=== PATIENT | male | born 1955 | race American Indian/Alaskan Native ===

== ENCOUNTER 2016-05-23 21:36 | Inpatient (IN) | payer MEDICAID ==
[2016-05-24] MEDS ORDERED: NACL 0.9% 1000 ML 1,000 ML IV ONE (02:18)
[2016-05-24] MEDS ORDERED: TYLENOL PR STA (02:18)
[2016-05-24] MEDS ORDERED: TYLENOL PO ONE (02:34)
[2016-05-24 03:14] LABS: INR 1.01 (0.87-1.13)
[2016-05-24 03:19] LABS: Hematocrit 39.4 % (35.5-45.6); Hemoglobin 13.2 gm/dl (11.8-15.2); Mean Corpuscular HGB Conc 34 % (32-34); Mean Corpuscular Hemoglobin 30 pg (28-32); Mean Corpuscular Volume 90 fl (84-94); Platelet Count 213 K/mm3 (140-440); Red Blood Count 4.38 M/mm3 (3.65-5.03); Red Cell Distribution Width 14.7 % (13.2-15.2); White Blood Count 5.2 K/mm3 (4.5-11.0)
[2016-05-24 03:20] LABS: Basophils % (Auto) 0.3 % (0.0-1.8); Eosinophils % (Auto) 1.4 % (0.0-4.3)
[2016-05-24 03:24] LABS: Alanine Aminotransferase 28 units/L (7-56); Albumin 3.4 g/dL (3.9-5); Albumin/Globulin Ratio 0.8 %; Alkaline Phosphatase 61 units/L (35-129); Bilirubin,Total 0.5 mg/dL (0.1-1.2); Blood Urea Nitrogen 14 mg/dL (9-20); Calcium 8.4 mg/dL (8.4-10.2); Carbon Dioxide 26 mmol/L (22-30); Glucose 102 mg/dL (75-100); Potassium 4.2 mmol/L (3.6-5.0); Sodium 138 mmol/L (137-145); Total Protein 7.7 g/dL (6.3-8.2)
[2016-05-24 03:32] LABS: Anion Gap 17 mmol/L
--- NOTE | 2016-05-24 08:31 | XRay Report ---
AP CHEST: AP view of the chest demonstrates a normal mediastinal and cardiac contour with clear lungs and normal bony and soft tissue structures. IMPRESSION: Normal AP chest.
[2016-05-24] MEDS ORDERED: MORPHINE IV ONE (20:18)
[2016-05-24] MEDS ORDERED: CLEOCIN 600 MG/50 mL 50 ML IV ONE (20:18)
[2016-05-24] MEDS ORDERED: ZOFRAN IV ONE (20:18)
[2016-05-24] MEDS ORDERED: NACL 0.9% 1000 ML 1,000 ML ONE (20:18)
[2016-05-24] MEDS ORDERED: ROCEPHIN/NS 1 GM/50 ML 50 ML IV ONE (20:18)
[2016-05-24] MEDS ORDERED: LASIX IV ONE (20:23)
[2016-05-24] MEDS ORDERED: BABY ASPIRIN PO ONE (20:24)
--- NOTE | 2016-05-24 20:24 | Emergency Department Report ---
HPI - General Chief Complaint: Wound/Laceration Time Seen by Provider: 05/24/16 19:46 - HPI HPI: The patient is a 60-year-old male with a history of diabetes, who presents for evaluation of pain and wound to the heel right ankle. The patient states that for greater than the past month he has experienced progressive pain in opening of a wound to the medial aspect of the right ankle. He states that for the past one day he has experienced severe 10 out of 10 pain, sharp and shooting in quality, exacerbated with ambulation, radiating proximally up the anterior wright of the leg. He also reports intermittent drainage of fluid from the wound, and unassociated bilateral lower leg swelling for the past couple of days. He shares that he is homeless and states that he is unable to clean the wound or purchase antibiotics. The patient denies fever, trauma to the ankle, paresthesias, motor deficit, pelvis or cyanosis to the foot or toes distal to the wound, chills, night sweats, generalized weakness, or confusion. ED Past Medical Hx - Past Medical History Previous Medical History?: Yes Hx Hypertension: Yes Hx Diabetes: Yes (BORDERLINE) Hx Deep Vein Thrombosis: Yes Hx Psychiatric Treatment: Yes (DEPRESSION) Hx COPD: Yes - Surgical History Past Surgical History?: Yes Additional Surgical History: LEFT HIP REPLACEMENT. LIPOMAS - Social History Smoking Status: Current Every Day Smoker Substance Use Type: Alcohol - Medications Home Medications: Home Medications Medication Instructions Recorded Confirmed Last Taken Type HYDROcodone/APAP 5-325 [Bellamy 1 - 2 each PO Q6HR PRN #14 tablet 11/01/14 Unknown Rx 5/325] SILVER sulfADIAZINE 400 GRAM 1 applicatio TP DAILY #400 gm 11/01/14 Unknown Rx [Thermazene 400 Gram] ED Review of Systems ROS: Stated complaint: RT LEG PAIN Other details as noted in HPI Constitutional: denies: fever ENT: denies: throat or neck pain Respiratory: denies: cough, shortness of breath Cardiovascular: denies: chest pain Endocrine: denies unexplained weight loss or gain Gastrointestinal: denies: abdominal pain, nausea Genitourinary: denies: dysuria Musculoskeletal: reports right ankle pain and bilateral leg swelling Skin: denies: rash Neurological: denies: headache Hematological/Lymphatic: denies: easy bleeding or easy bruising Psych: denies sadness or hopelessness Physical Exam - Physical Exam Vital Signs: Vital Signs 12/28/16 12/28/16 12/28/16 02:25 02:40 08:05 Temperature 98.6 F 98.6 F Pulse Rate 97 H 84 Respiratory 22 18 16 Rate Blood Pressure 155/104 149/97 O2 Sat by Pulse 99 98 Oximetry Physical Exam: General: well-nourished, well-developed, no acute distress Head: Normocephalic, atraumatic Eyes: normal sclera ENT: Mucous membranes are pale and dry Neck: trachea midline, neck supple, No neck stiffness, no cervical adenopathy Respiratory: Breath sounds equal bilaterally, no wheezing, rales, or rhonchi Cardio: S1 and S2 present, no murmurs, rubs, gallops, capillary refill is delayed Abdomen: Normoactive bowel sounds, soft abdomen, no rigidity, no guarding or rebound tenderness Chest WALL/Back: No tenderness to palpation of the chest wall, no CVA tenderness with percussion Musc: right ankle erythema present to medial malleolus and midfoot, large draining ulcer present overlying the medial malleolus of the rt ankle, tenderness to palpation present to surrounding tissues, distal pulses intact, 1 + pitting edema of bilateral legs present, leg compartments soft and pliable Skin: No rash Neuro: no facial drooping, normal speech Psych: Normal affect ED Course Vital Signs 05/24/16 05/24/16 05/24/16 02:25 02:40 08:05 Temperature 98.6 F 98.6 F Pulse Rate 97 H 84 Respiratory 22 18 16 Rate Blood Pressure 155/104 149/97 O2 Sat by Pulse 99 98 Oximetry ED Medical Decision Making - Lab Data Result diagrams: 05/24/16 02:41 05/24/16 02:41 - Medical Decision Making The patient was seen and examined by myself. The patient is placed on a fishing rod trimmer and continuous pulse ox. On initial evaluation, the patient was found to be in no distress. Exam findings are consistent with acute cellulitis. Evaluation orders were placed. The patient is given IV morphine for his pain and IV Lasix for fluid overload. The patient is given IV Rocephin and clindamycin for treatment of his cellulitis. X-ray of the right ankle is obtained and is negative for periosteal elevation of findings concerning at this time for osteomyelitis. Wound cultures were obtained. The on-call hospitalist service was contacted. They agreed to admit the patient for further treatment and close monitoring. The ED admit order was placed. The patient was admitted in guarded condition. Critical care attestation.: If time is entered above; I have spent that time in minutes in the direct care of this critically ill patient, excluding procedure time. ED Disposition Clinical Impression: Ankle ulcer due to DM, Dehydration Cellulitis Qualifiers: Site of cellulitis: extremity Site of cellulitis of extremity: lower extremity Laterality: right Qualified Code(s): L03.115 - Cellulitis of right lower limb Disposition: OP ADMITTED IP TO THIS HOSP Is pt being admited?: Yes Does the pt Need Aspirin: Yes Condition: Stable Instructions: Diabetes Mellitus Type 2 in Adults (ED) Referrals: PRIMARY CARE, [Primary Care Provider] - 3-5 Days Time of Disposition: 20:22
--- NOTE | 2016-05-24 20:54 | Admit Criteria Form ---
Admission Criteria Documentation: CELLULITIS Clinical Indications for Admission to Inpatient Care (Place 'X' for any and all applicable criteria): Admission is indicated for ANY ONE of the following(1)(2)(3)(4)(5): [ ]I. Limb-threatening infection [ ]II. High-risk comorbid condition as indicated by ANY ONE of the following: [ ]a) Uncontrolled diabetes (eg, HbA1c greater than 10% (0.1)) [ ]b) Cirrhosis [ ]c) Neutropenia [ ]d) Asplenia [ ]e) Immunosuppression [ ]f) Symptomatic heart failure [ ]III. Failure of outpatient therapy as indicated by ALL of the following: [ ]a) Progression or no improvement after adequate trial (minimum of 48 hours, with longer period for stable lower extremity infection) [ ]b) Adequate antibiotic regimen as indicated by use of ANY ONE of the following: [ ]i) First-generation cephalosporin (e.g., cephalexin) [ ]ii) Antistaphylococcal penicillin (e.g., dicloxacillin) [ ]iii) Penicillin-allergic patient regimen (clindamycin, extended-spectrum fluoroquinolone, or doxycycline) [ ]iv) Resistant organism (eg, methicillin-resistant Staphylococcus aureus) regimen (6) [ ]c) Outpatient intravenous therapy regimen is not appropriate due to ANY ONE of the following. (7)(8)(9)(10): [ ]i) It was tried and was not successful (eg, progression of infection). [ ]ii) It is not available or cannot be arranged in a clinically appropriate time frame (e.g., the next day). [ ]iii) Clinical presentation (eg, acuity of infection, rapidity of progression, confirmed or suspected bacteremia) is judged to require ALL of the following: [ ]1) Immediate initiation of intravenous therapy ( eg, cannot wait for next day) [ ]2) Intensity of patient monitoring and observation (eg, vital sign measurement, checks for infection progression) that cannot be provided at other than inpatient level of care [ ]IV. Mental status changes [ ]V. Bacteremia [ ]. Hemodynamic instability [ ]VII. Suspected necrotizing soft tissue infection (e.g., gas in tissue)(11)( 12) [ ]VIII. Orbital infection (13)(14) [ ]IX. Associated surgical procedure (e.g., abscess drainage, debridement) not amenable to outpatient, emergency department, or observation care [ ]X. Cutaneous gangrene [ ]XI. High fever (temperature greater than 39.5 degrees C (103.1 degrees F) (oral)) not responsive to outpatient, emergency department, or observation care therapy [ X]XIII. Inpatient admission required rather than observation care (Also use Cellulitis: Observation Care as appropriate) because of ANY ONE of the following : [ ]a) Periorbital or perineal infection that is severe or worsening [ ]b) Severe pain requiring acute inpatient management [ ]c) IV fluid to replace significant ongoing (e.g., for over 24 hours) losses (greater than 3L/m2 per day) [ ]d) Compartment syndrome monitoring (17) [ ]e) Strict or protective (eg, laminar flow) isolation [ ]f) Urgent debridement or skin grafting [ ]g) Bone or joint debridement [ ]h) Immediate inpatient surgery [X ]i) Other condition, treatment or monitoring requiring inpatient admission Extended stay beyond goal length of stay may be needed for (1)(18): [ ]a) Necrotizing soft tissue infection or fasciitis [ ]b) Gram-negative infection [ ]c) Methicillin-resistant Staphylococcal aureus (MRSA) infection [ ]d) Peripheral venous insufficiency with cellulitis [ ]e) Extensive edema [ ]f) Sepsis or continued Hemodynamic instability [ ]g) Continued high fever or mental status change [ ]h) Bacteremia [ ]i) Active serious comorbid conditions ( eg, heart failure, renal insufficiency) The original [employer] content created by [employer] has been revised. The portions of the content which have been revised are identified through the use of italic text or in bold, and [facility] has neither reviewed nor approved the modified material. All other unmodified content is copyright [facility] [employer] Please see references footnoted in the original [facility] [employer] edition 2016 Admission Criteria Met: Yes
[2016-05-24 21:12] LABS: C-Reactive Protein 0.4 mg/dL (0.00-1.30)
[2016-05-24 21:44] LABS: Bilirubin,Urine NEG (Negative); Blood,Urine SM (Negative); Ketones,Urine NEG (Negative); Leukocyte Esterase,Urine NEG (Negative); Nitrite,Urine NEG (Negative); Protein,Urine <15 mg/dL mg/dL (Negative); Urobilinogen,Urine < 2.0 mg/dL (<2.0); WBC,Urine < 1.0 /HPF (0.0-6.0)
--- NOTE | 2016-05-24 22:41 | History and Physical Report ---
History of Present Illness Chief complaint: My foot is infected History of present illness: 60 YO Homeless Male with HTN, Depression, Metabolic Syndrome, Nicotine Dependence, DVT presents to ED for evaluation. Pt states that he has experienced worsening pain and swelling of his right ankle over the past month. Pt acknowledges non healing right ankle ulcer. pt symptoms have gotten worse over the past 24 hours. Pt now complains of worsening swelling, Pain 10/10, localized to right foot. Pt is unable to bear weight on his right foot due to pain. The patient denies fever, trauma to the ankle, prolonged immobility/ travel, family history of PE/DVT, paresthesias, fever, chills, night sweats, generalized weakness, or confusion. Past History Past Medical History: hypertension Past Surgical History: total hip replacement Social history: single, smoking, alcohol abuse Family history: diabetes, hypertension Medications and Allergies Allergies Allergy/AdvReac Type Severity Reaction Status Date / Time povidone-iodine Allergy Swelling Verified 10/31/14 14:29 [From Betadine] soap [From Betadine] Allergy Swelling Verified 10/31/14 14:29 Home Medications Medication Instructions Recorded Confirmed Last Taken Type HYDROcodone/APAP 5-325 [[place]z 1 - 2 each PO Q6HR PRN #14 tablet 11/01/14 Unknown Rx 5/325] SILVER sulfADIAZINE 400 GRAM 1 applicatio TP DAILY #400 gm 11/01/14 Unknown Rx [Thermazene 400 Gram] Review of Systems All systems: negative Musculoskeletal: other (foot pain) Exam - Constitutional Vitals: Temp Pulse Resp BP Pulse Ox 98.6 F 84 16 151/93 96 05/24/16 08:05 05/24/16 08:05 05/24/16 08:05 05/24/16 20:45 05/24/16 20:45 General appearance: Present: mild distress - EENT Eyes: Present: PERRL ENT: hearing intact, clear oral mucosa - Neck Neck: Present: supple, normal ROM - Respiratory Respiratory effort: normal Respiratory: bilateral: CTA - Cardiovascular Heart Sounds: Present: S1 & S2. Absent: rub, click - Extremities Extremities: pulses symmetrical, No edema Extremity abnormal: edema, ulceration, erythema, pulses diminished Peripheral Pulses: within normal limits - Abdominal General gastrointestinal: Present: soft, non-tender, non-distended, normal bowel sounds Male genitourinary: Present: normal - Integumentary Integumentary: Present: clear, warm, dry - Musculoskeletal Musculoskeletal: gait normal, strength equal bilaterally - Psychiatric Psychiatric: appropriate mood/affect, intact judgment & insight - Neurologic Neurologic: CNII-XII intact, moves all extremities Results - Labs CBC & Chem 7: 05/24/16 02:41 05/24/16 02:41 Labs: Abnormal lab results 05/24/16 05/24/16 Range/Units 02:41 02:41 Lymph % (Auto) 44.8 H (13.4-35.0) % [place] % (Auto) 14.2 H (0.0-7.3) % Seg Neutrophils % 39.3 L (40.0-70.0) % Glucose 102 H (75-100) mg/dL AST 51 H (5-40) units/L Albumin 3.4 L (3.9-5) g/dL Assessment and Plan - Patient Problems (1) Cellulitis Current Visit: Yes Status: Acute Qualifiers: Site of cellulitis: extremity Site of cellulitis of extremity: lower extremity Laterality: right Qualified Code(s): L03.115 - Cellulitis of right lower limb Plan to address problem: IV abx, blood culture, wound culture, Vancomycin, Zosyn, wound care consult Cellulitis with ulceration (2) Metabolic syndrome Current Visit: Yes Status: Acute Plan to address problem: supportive care, (3) Nicotine dependence Current Visit: Yes Status: Acute Plan to address problem: Pt counseled. (4) DVT prophylaxis Current Visit: Yes Status: Acute
[2016-05-24] MEDS ORDERED: TYLENOL PO PRN (23:07)
[2016-05-24] MEDS ORDERED: DUONEB 0.5 MG-3 MG/3 ML SOLN IH PRN (23:07)
[2016-05-24] MEDS ORDERED: PROVENTIL IH PRN (23:17)
[2016-05-24] MEDS ORDERED: ZOSYN/NS 4.5GM/100ML 100 ML IV ONE (23:19)
[2016-05-24] MEDS ORDERED: VANCOMYCIN/NS 1 GM/250 ML 250 ML IV ONE (23:19)
[2016-05-24] MEDS ORDERED: THERAGRAN Tab PO ONE (23:20)
[2016-05-24] MEDS ORDERED: VITAMIN B-1 PO ONE (23:20)
[2016-05-25] MEDS ORDERED: HALDOL IV PRN (00:06)
[2016-05-25] MEDS ORDERED: ATIVAN IV PRN ×2 (00:06)
[2016-05-25] MEDS: PERCOCET 5/325 PO PRN ×4 (00:26→19:52)
--- NOTE | 2016-05-25 09:12 | XRay Report ---
RIGHT ANKLE, 2 VIEWS: HISTORY: Right ankle ulcer, pain, swelling. FINDINGS: Compared to 10/31/14 exam. There is diffuse soft tissue swelling/edema. A large area of ulceration is identified in the medial soft tissues just proximal to the ankle joint. This area of ulceration measures up to 6 cm in diameter. No obvious periostitis or bony destruction is identified. There are moderate osteoarthritic changes at the ankle joint. No fracture. IMPRESSION: Large area of ulceration in the medial soft tissues and diffuse soft tissue swelling. Cellulitis is likely. No obvious findings of osteomyelitis on x-ray. If further evaluation is needed, MRI with contrast or triple phase bone scan would provide the most information.
[2016-05-25] MEDS: FOLVITE PO SCH (09:17)
--- NOTE | 2016-05-25 11:36 | Progress Note ---
Assessment and Plan Assessment and plan: 1. Right lower extremity cellulitis Continue antibiotics, venous duplex negative for DVT, continue antibiotics, follow up blood and wound cultures. 2. Nicotine dependence Patient has been counseled, offered nicotine patches when necessary History Interval history: Interval reduction of redness, swelling and pain in right lower extremity. Denies fever Hospitalist Physical - Physical exam Narrative exam: General: Patient appears well in no distress HEENT: MMM, EOMI cardiac: S1-S2 heard lungs: clear to auscultation, abdomen: soft, nontender, nondistended bowel sounds positive extremities: Right lower extremity edema, erythema and tenderness, medial malleolus ulcer Skin: no rash or lesion Neuro: no focal deficit Psych: appropriate behavior and mood, cognition intact - Constitutional Vitals: Temp Pulse Resp BP Pulse Ox 97.5 F L 60 20 112/73 98 05/25/16 08:10 05/25/16 08:10 05/25/16 08:10 05/25/16 08:10 05/25/16 08:10 General appearance: Present: mild distress Results - Labs CBC & Chem 7: 05/24/16 02:41 05/24/16 02:41 Labs: Laboratory Last Values WBC 5.2 K/mm3 (4.5-11.0) 05/24/16 02:41 RBC 4.38 M/mm3 (3.65-5.03) 05/24/16 02:41 Hgb 13.2 gm/dl (11.8-15.2) 05/24/16 02:41 Hct 39.4 % (35.5-45.6) 05/24/16 02:41 MCV 90 fl (84-94) 05/24/16 02:41 MCH 30 pg (28-32) 05/24/16 02:41 MCHC 34 % (32-34) 05/24/16 02:41 RDW 14.7 % (13.2-15.2) 05/24/16 02:41 Plt Count 213 K/mm3 (140-440) 05/24/16 02:41 Lymph % (Auto) 44.8 % (13.4-35.0) H 05/24/16 02:41 [place] % (Auto) 14.2 % (0.0-7.3) H 05/24/16 02:41 Eos % (Auto) 1.4 % (0.0-4.3) 05/24/16 02:41 Baso % (Auto) 0.3 % (0.0-1.8) 05/24/16 02:41 Lymph # 2.3 K/mm3 (1.2-5.4) 05/24/16 02:41 [place] # 0.7 K/mm3 (0.0-0.8) 05/24/16 02:41 Eos # 0.1 K/mm3 (0.0-0.4) 05/24/16 02:41 Baso # 0.0 K/mm3 (0.0-0.1) 05/24/16 02:41 Seg Neutrophils % 39.3 % (40.0-70.0) L 05/24/16 02:41 Seg Neutrophils # 2.0 K/mm3 (1.8-7.7) 05/24/16 02:41 ESR 40 mm/Hr (0-20) 05/24/16 20:37 PT 13.2 Sec. (12.2-14.9) 05/24/16 02:41 INR 1.01 (0.87-1.13) 05/24/16 02:41 VBG pH 7.398 (7.320-7.420) 05/24/16 02:41 Sodium 138 mmol/L (137-145) 05/24/16 02:41 Potassium 4.2 mmol/L (3.6-5.0) 05/24/16 02:41 Chloride 99.0 mmol/L (98-107) 05/24/16 02:41 Carbon Dioxide 26 mmol/L (22-30) 05/24/16 02:41 Anion Gap 17 mmol/L 05/24/16 02:41 BUN 14 mg/dL (9-20) 05/24/16 02:41 Creatinine 0.8 mg/dL (0.8-1.5) 05/24/16 02:41 Estimated GFR > 60 ml/min 05/24/16 02:41 BUN/Creatinine Ratio 17.50 % 05/24/16 02:41 Glucose 102 mg/dL (75-100) H 05/24/16 02:41 Hemoglobin A1c 6.2 % (4-6) H 05/24/16 23:46 Lactic Acid 0.7 mmol/L (0.7-2.0) 05/24/16 05:12 Calcium 8.4 mg/dL (8.4-10.2) 05/24/16 02:41 Total Bilirubin 0.5 mg/dL (0.1-1.2) 05/24/16 02:41 AST 51 units/L (5-40) H 05/24/16 02:41 ALT 28 units/L (7-56) 05/24/16 02:41 Alkaline Phosphatase 61 units/L (35-129) 05/24/16 02:41 C-Reactive Protein 0.40 mg/dL (0.00-1.30) 05/24/16 20:37 NT-Pro-B Natriuret Pep 96.48 pg/mL (0-900) 05/24/16 20:37 Total Protein 7.7 g/dL (6.3-8.2) 05/24/16 02:41 Albumin 3.4 g/dL (3.9-5) L 05/24/16 02:41 Albumin/Globulin Ratio 0.8 % 05/24/16 02:41 Triglycerides 75 mg/dL (2-149) 05/24/16 23:46 Cholesterol 128 mg/dL (50-199) 05/24/16 23:46 LDL Cholesterol Direct 49 mg/dL (50-130) L 05/24/16 23:46 HDL Cholesterol 64 mg/dL (40-59) H 05/24/16 23:46 Cholesterol/HDL Ratio 2.00 % 05/24/16 23:46 Urine Color Straw (Yellow) 05/24/16 21:00 Urine Turbidity Clear (Clear) 05/24/16 21:00 Urine pH 6.0 (5.0-7.0) 05/24/16 21:00 Ur Specific Oral 1.008 (1.003-1.030) 05/24/16 21:00 Urine Protein <15 mg/dl mg/dL (Negative) 05/24/16 21:00 Urine Glucose (UA) Neg mg/dL (Negative) 05/24/16 21:00 Urine Ketones Neg mg/dL (Negative) 05/24/16 21:00 Urine Blood Sm (Negative) 05/24/16 21:00 Urine Nitrite Neg (Negative) 05/24/16 21:00 Urine Bilirubin Neg (Negative) 05/24/16 21:00 Urine Urobilinogen < 2.0 mg/dL (<2.0) 05/24/16 21:00 Ur Leukocyte Esterase Neg (Negative) 05/24/16 21:00 Urine WBC (Auto) < 1.0 /HPF (0.0-6.0) 05/24/16 21:00 Urine RBC (Auto) 1.0 /HPF (0.0-6.0) 05/24/16 21:00 - Imaging and Cardiology Venous US: image reviewed (no dvt) Imaging and Cardiology: R foot xray soft tx swelling and ulceration cw cellulitis
[2016-05-25] MEDS: UNASYN/NS 3 GM/100 ML 100 ML IV SCH ×2 (15:15→18:17)
[2016-05-26] MEDS: UNASYN/NS 3 GM/100 ML 100 ML IV SCH ×4 (00:40→17:50)
[2016-05-26] MEDS: PERCOCET 5/325 PO PRN ×2 (06:06→15:43)
--- NOTE | 2016-05-26 09:52 | Progress Note ---
Assessment and Plan Assessment and plan: 1. Right lower extremity cellulitis venous duplex negative for DVT, continue abx for now ID input appreciated, had a mild cellulitis that appears to be resolving unlikely to need fpc abx 2. Nicotine dependence Patient has been counseled, offered nicotine patches when necessary 3. Venous stasis Ulcer/ Chronic lymphedema local wound care will need outpatient vascular fup Dispo: fdc placement History Interval history: Interval reduction of redness, swelling and pain in right lower extremity. Denies fever Hospitalist Physical - Physical exam Narrative exam: General: Patient appears well in no distress HEENT: MMM, EOMI cardiac: S1-S2 heard lungs: clear to auscultation, abdomen: soft, nontender, nondistended bowel sounds positive extremities: Right lower extremity edema, erythema and tenderness has now resolved, medial malleoulus ulceration noted, appears clean Skin: no rash or lesion Neuro: no focal deficit Psych: appropriate behavior and mood, cognition intact - Constitutional Vitals: Temp Pulse Resp BP Pulse Ox 98.4 F 78 18 160/87 94 05/26/16 07:10 05/26/16 07:10 05/26/16 07:10 05/26/16 07:10 05/25/16 22:52 General appearance: Present: mild distress Results - Labs CBC & Chem 7: 05/24/16 02:41 05/24/16 02:41 Labs: Laboratory Last Values WBC 5.2 K/mm3 (4.5-11.0) 05/24/16 02:41 RBC 4.38 M/mm3 (3.65-5.03) 05/24/16 02:41 Hgb 13.2 gm/dl (11.8-15.2) 05/24/16 02:41 Hct 39.4 % (35.5-45.6) 05/24/16 02:41 MCV 90 fl (84-94) 05/24/16 02:41 MCH 30 pg (28-32) 05/24/16 02:41 MCHC 34 % (32-34) 05/24/16 02:41 RDW 14.7 % (13.2-15.2) 05/24/16 02:41 Plt Count 213 K/mm3 (140-440) 05/24/16 02:41 Lymph % (Auto) 44.8 % (13.4-35.0) H 05/24/16 02:41 [place] % (Auto) 14.2 % (0.0-7.3) H 05/24/16 02:41 Eos % (Auto) 1.4 % (0.0-4.3) 05/24/16 02:41 Baso % (Auto) 0.3 % (0.0-1.8) 05/24/16 02:41 Lymph # 2.3 K/mm3 (1.2-5.4) 05/24/16 02:41 [place] # 0.7 K/mm3 (0.0-0.8) 05/24/16 02:41 Eos # 0.1 K/mm3 (0.0-0.4) 05/24/16 02:41 Baso # 0.0 K/mm3 (0.0-0.1) 05/24/16 02:41 Seg Neutrophils % 39.3 % (40.0-70.0) L 05/24/16 02:41 Seg Neutrophils # 2.0 K/mm3 (1.8-7.7) 05/24/16 02:41 ESR 40 mm/Hr (0-20) 05/24/16 20:37 PT 13.2 Sec. (12.2-14.9) 05/24/16 02:41 INR 1.01 (0.87-1.13) 05/24/16 02:41 VBG pH 7.398 (7.320-7.420) 05/24/16 02:41 Sodium 138 mmol/L (137-145) 05/24/16 02:41 Potassium 4.2 mmol/L (3.6-5.0) 05/24/16 02:41 Chloride 99.0 mmol/L (98-107) 05/24/16 02:41 Carbon Dioxide 26 mmol/L (22-30) 05/24/16 02:41 Anion Gap 17 mmol/L 05/24/16 02:41 BUN 14 mg/dL (9-20) 05/24/16 02:41 Creatinine 0.8 mg/dL (0.8-1.5) 05/24/16 02:41 Estimated GFR > 60 ml/min 05/24/16 02:41 BUN/Creatinine Ratio 17.50 % 05/24/16 02:41 Glucose 102 mg/dL (75-100) H 05/24/16 02:41 Hemoglobin A1c 6.2 % (4-6) H 05/24/16 23:46 Lactic Acid 0.7 mmol/L (0.7-2.0) 05/24/16 05:12 Calcium 8.4 mg/dL (8.4-10.2) 05/24/16 02:41 Total Bilirubin 0.5 mg/dL (0.1-1.2) 05/24/16 02:41 AST 51 units/L (5-40) H 05/24/16 02:41 ALT 28 units/L (7-56) 05/24/16 02:41 Alkaline Phosphatase 61 units/L (35-129) 05/24/16 02:41 C-Reactive Protein 0.40 mg/dL (0.00-1.30) 05/24/16 20:37 NT-Pro-B Natriuret Pep 96.48 pg/mL (0-900) 05/24/16 20:37 Total Protein 7.7 g/dL (6.3-8.2) 05/24/16 02:41 Albumin 3.4 g/dL (3.9-5) L 05/24/16 02:41 Albumin/Globulin Ratio 0.8 % 05/24/16 02:41 Triglycerides 75 mg/dL (2-149) 05/24/16 23:46 Cholesterol 128 mg/dL (50-199) 05/24/16 23:46 LDL Cholesterol Direct 49 mg/dL (50-130) L 05/24/16 23:46 HDL Cholesterol 64 mg/dL (40-59) H 05/24/16 23:46 Cholesterol/HDL Ratio 2.00 % 05/24/16 23:46 Urine Color Straw (Yellow) 05/24/16 21:00 Urine Turbidity Clear (Clear) 05/24/16 21:00 Urine pH 6.0 (5.0-7.0) 05/24/16 21:00 Ur Specific [place] 1.008 (1.003-1.030) 05/24/16 21:00 Urine Protein <15 mg/dl mg/dL (Negative) 05/24/16 21:00 Urine Glucose (UA) Neg mg/dL (Negative) 05/24/16 21:00 Urine Ketones Neg mg/dL (Negative) 05/24/16 21:00 Urine Blood Sm (Negative) 05/24/16 21:00 Urine Nitrite Neg (Negative) 05/24/16 21:00 Urine Bilirubin Neg (Negative) 05/24/16 21:00 Urine Urobilinogen < 2.0 mg/dL (<2.0) 05/24/16 21:00 Ur Leukocyte Esterase Neg (Negative) 05/24/16 21:00 Urine WBC (Auto) < 1.0 /HPF (0.0-6.0) 05/24/16 21:00 Urine RBC (Auto) 1.0 /HPF (0.0-6.0) 05/24/16 21:00
[2016-05-26] MEDS: FOLVITE PO SCH (10:00)
--- NOTE | 2016-05-26 13:09 | Consultation ---
History of Present Illness - Reason for Consult Consult date: 05/26/16 Right ankle infection Requesting physician: ROSSANA CRUZ - History of Present Illness Kevin Luciano is a 60-year-old homeless male who was admitted to [facility] on 05/24/16 with right ankle pain. He has had a chronic ("since I was a child") right medial malleolus ulcer that intermittently heals but for the most part has been opened. He states that for several weeks prior to admission it became larger and started draining a malodorous material and he came to the emergency department and was admitted to the hospitalist service. He was not having any fever or chills. He has no history of previous surgery but has at times been to the wound care center and had local debridements. He has not been on any recent antibiotics. Otherwise he has had no chronic medical or surgical problems. Review of systems General: No fevers or chills, no change in appetite, no weight change HEENT: no odynophagia, no dysphagia, no oral lesions, no vision changes CV: no chest pain, no palpitations Chest: no dyspnea, no cough GI: no abdominal pain, no N/V, no diarrhea : no change in urinary frequency, no dysuria, no hematuria Skin: See HPI Ext: Left ankle pain as per HPI Neuro: no headaches, no numbness/tingling, no tremors Endocrine: No history of diabetes. Psych: no anxiety, no depression Infectious diseases: No HIV risk factors, No history of STDs, No significant travel or animal contact history. Past History Past Medical History: hypertension Past Surgical History: total hip replacement Social history: single, smoking, alcohol abuse Family history: diabetes, hypertension Medications and Allergies Allergies Allergy/AdvReac Type Severity Reaction Status Date / Time povidone-iodine Allergy Swelling Verified 10/31/14 14:29 [From Betadine] soap [From Betadine] Allergy Swelling Verified 10/31/14 14:29 Home Medications Medication Instructions Recorded Confirmed Last Taken Type HYDROcodone/APAP 5-325 [[place] 1 - 2 each PO Q6HR PRN #14 tablet 11/01/14 Unknown Rx 5/325] SILVER sulfADIAZINE 400 GRAM 1 applicatio TP DAILY #400 gm 11/01/14 05/26/16 Unknown Rx [Thermazene 400 Gram] Active Meds: Active Medications Acetaminophen (Tylenol) 650 mg PO Q4H PRN PRN Reason: Pain MILD(1-3)/Fever >100.5/JAMISON Albuterol (Proventil) 2.5 mg IH Q4HRT PRN PRN Reason: Wheezing Folic Acid (Folvite) 1 mg PO QDAY [facility] Last Admin: 05/26/16 10:00 Dose: 1 mg Haloperidol Lactate (Haldol) 5 mg IV Q1HR PRN PRN Reason: Unrespon. to mult. doses BZD's Ampicillin Sodium/Sulbactam Sodium (Unasyn/Ns 3 Gm/100 Ml) 100 mls @ 100 mls/ hr IV Q6HR CHEIKH PRN Reason: Protocol Last Admin: 05/26/16 11:40 Dose: 100 mls/hr Lorazepam (Ativan) 2 mg IV Q1HR PRN PRN Reason: MADDIE-Aki 8-15 Last Admin: 05/25/16 19:52 Dose: 2 mg Lorazepam (Ativan) 4 mg IV Q1HR PRN PRN Reason: Brit 16-25 Oxycodone/Acetaminophen (Percocet 5/325) 1 tab PO Q6H PRN PRN Reason: Pain , Severe (7-10) Last Admin: 05/26/16 06:06 Dose: 1 tab Physical Examination - Physical Exam Narrative exam: GENERAL: Well-developed, well-nourished appearing who is alert and in no acute distress. He does not appear acutely ill. HEAD: Normocephalic. No lesions seen. EYES: Pupils are equal reactive to light and accommodation. There is no scleral icterus. Optic fundi are not examined. EARS: Tympanic membranes are normal. THROAT: Oropharynx is normal with no evidence of oral candidiasis or pharyngitis. NECK: Supple. No enlargement of the thyroid gland. No significant cervical lymphadenopathy. No jugular venous distention at 30. LUNGS: Clear with no adventitious sounds. HEART: Regular rate. S1 and S2 are normal. There are no murmurs, gallops, clicks or rubs heard. ABDOMEN: Soft and nontender. Liver and spleen are not palpably enlarged or tender. No palpable masses. Bowel sounds are normoactive. EXTREMITIES: No peripheral lymphadenopathy. Moderate bilateral lower extremity edema (right > left) without cellulitic changes. There is a large ulcer over the right medial malleolus with a clean-appearing base without necrotic debris nor purulence at present. No surrounding cellulitic changes. SKIN: No rash. Ankle ulcer as above. : Not examined NEUROLOGIC: No focal findings. - Constitutional Vitals: Vital Signs Temp Pulse Resp BP Pulse Ox 98.4 F 78 18 160/87 94 05/26/16 07:10 05/26/16 07:10 05/26/16 07:10 05/26/16 07:10 05/25/16 22:52 Temperature -Last 24 Hours Temperature 98.4 F Temperature 97.5 F Temperature 98.7 F Results - Labs CBC & Chem 7: 05/24/16 02:41 05/24/16 02:41 Labs: Microbiology 05/24/16 20:00 Ankle - Right Wound Culture - Pending Gram stain: Few PMNs, few gram-negative rods, few gram-positive cocci in clusters and a few gram-positive cocci in pairs 05/24/16 02:41 Peripheral/Venous Blood Culture - Preliminary NO GROWTH AFTER 48 HOURS 05/24/16 02:41 Peripheral/Venous Blood Culture - Preliminary NO GROWTH AFTER 48 HOURS Imagin/28: Right ankle: Evidence of a lateral malleolar ulcer with no bone destruction Assessment and Plan Current antibiotics: Unasyn 3 g IV q6h 05/25 --> Previous antibiotics: Zosyn 4.5 g IV X 1 05/24 Clindamycin 600 mg IV X 1 05/24 Vancomycin 1 g IV X 1 05/24 ASSESSMENT: Kevin Luciano is a 60-year-old homeless male who was admitted to [facility] on 05/24/16 with right ankle pain. He has had a chronic ("since I was a child") left medial malleolus ulcer that intermittently heals but for the most part has been opened. He states that for several weeks prior to admission it became larger and started draining a malodorous material and he came to the emergency department and was admitted to the hospitalist service Problem list: 1. Chronic venous stasis ulcer over the right medial malleolus -Appears fairly clean at present with no signs of active infection -? mild infection on admission 2. Chronic lower extremity lymphedema -Moderate 3. Homeless PLAN: 1. Will continue Unasyn for now but likely will be able to stop antibiotics soon 2. Local wound care 3. Long-Term placement as per case management Thank you for this consultation. We will follow with you. Temo Wasserman MD [facility] Office: [phone]
[2016-05-27] MEDS: UNASYN/NS 3 GM/100 ML 100 ML IV SCH ×5 (01:21→23:00)
[2016-05-27] MEDS: PERCOCET 5/325 PO PRN ×3 (07:49→23:03)
[2016-05-27] MEDS: FOLVITE PO SCH (09:00)
--- NOTE | 2016-05-27 10:45 | Progress Note ---
Assessment and Plan Assessment and plan: 1. Right lower extremity cellulitis venous duplex negative for DVT, continue abx for now ID input appreciated, had a mild cellulitis that appears to be resolving unlikely to need fci abx 2. Nicotine dependence Patient has been counseled, offered nicotine patches when necessary 3. Venous stasis Ulcer/ Chronic lymphedema local wound care will need outpatient vascular fup Dispo: jail placement History Interval history: Interval reduction of redness, swelling and pain in right lower extremity. Denies fever Hospitalist Physical - Physical exam Narrative exam: General: Patient appears well in no distress HEENT: MMM, EOMI cardiac: S1-S2 heard lungs: clear to auscultation, abdomen: soft, nontender, nondistended bowel sounds positive extremities: Right lower extremity edema, erythema and tenderness has now resolved, medial malleoulus ulceration noted, appears clean Skin: no rash or lesion Neuro: no focal deficit Psych: appropriate behavior and mood, cognition intact - Constitutional Vitals: Temp Pulse Resp BP Pulse Ox 98.3 F 71 16 168/85 98 05/27/16 07:55 05/27/16 07:55 05/27/16 07:55 05/27/16 07:55 05/27/16 07:55 General appearance: Present: mild distress Results - Labs CBC & Chem 7: 05/24/16 02:41 05/24/16 02:41 Labs: Laboratory Last Values WBC 5.2 K/mm3 (4.5-11.0) 05/24/16 02:41 RBC 4.38 M/mm3 (3.65-5.03) 05/24/16 02:41 Hgb 13.2 gm/dl (11.8-15.2) 05/24/16 02:41 Hct 39.4 % (35.5-45.6) 05/24/16 02:41 MCV 90 fl (84-94) 05/24/16 02:41 MCH 30 pg (28-32) 05/24/16 02:41 MCHC 34 % (32-34) 05/24/16 02:41 RDW 14.7 % (13.2-15.2) 05/24/16 02:41 Plt Count 213 K/mm3 (140-440) 05/24/16 02:41 Lymph % (Auto) 44.8 % (13.4-35.0) H 05/24/16 02:41 [place] % (Auto) 14.2 % (0.0-7.3) H 05/24/16 02:41 Eos % (Auto) 1.4 % (0.0-4.3) 05/24/16 02:41 Baso % (Auto) 0.3 % (0.0-1.8) 05/24/16 02:41 Lymph # 2.3 K/mm3 (1.2-5.4) 05/24/16 02:41 [place] # 0.7 K/mm3 (0.0-0.8) 05/24/16 02:41 Eos # 0.1 K/mm3 (0.0-0.4) 05/24/16 02:41 Baso # 0.0 K/mm3 (0.0-0.1) 05/24/16 02:41 Seg Neutrophils % 39.3 % (40.0-70.0) L 05/24/16 02:41 Seg Neutrophils # 2.0 K/mm3 (1.8-7.7) 05/24/16 02:41 ESR 40 mm/Hr (0-20) 05/24/16 20:37 PT 13.2 Sec. (12.2-14.9) 05/24/16 02:41 INR 1.01 (0.87-1.13) 05/24/16 02:41 VBG pH 7.398 (7.320-7.420) 05/24/16 02:41 Sodium 138 mmol/L (137-145) 05/24/16 02:41 Potassium 4.2 mmol/L (3.6-5.0) 05/24/16 02:41 Chloride 99.0 mmol/L (98-107) 05/24/16 02:41 Carbon Dioxide 26 mmol/L (22-30) 05/24/16 02:41 Anion Gap 17 mmol/L 05/24/16 02:41 BUN 14 mg/dL (9-20) 05/24/16 02:41 Creatinine 0.8 mg/dL (0.8-1.5) 05/24/16 02:41 Estimated GFR > 60 ml/min 05/24/16 02:41 BUN/Creatinine Ratio 17.50 % 05/24/16 02:41 Glucose 102 mg/dL (75-100) H 05/24/16 02:41 Hemoglobin A1c 6.2 % (4-6) H 05/24/16 23:46 Lactic Acid 0.7 mmol/L (0.7-2.0) 05/24/16 05:12 Calcium 8.4 mg/dL (8.4-10.2) 05/24/16 02:41 Total Bilirubin 0.5 mg/dL (0.1-1.2) 05/24/16 02:41 AST 51 units/L (5-40) H 05/24/16 02:41 ALT 28 units/L (7-56) 05/24/16 02:41 Alkaline Phosphatase 61 units/L (35-129) 05/24/16 02:41 C-Reactive Protein 0.40 mg/dL (0.00-1.30) 05/24/16 20:37 NT-Pro-B Natriuret Pep 96.48 pg/mL (0-900) 05/24/16 20:37 Total Protein 7.7 g/dL (6.3-8.2) 05/24/16 02:41 Albumin 3.4 g/dL (3.9-5) L 05/24/16 02:41 Albumin/Globulin Ratio 0.8 % 05/24/16 02:41 Triglycerides 75 mg/dL (2-149) 05/24/16 23:46 Cholesterol 128 mg/dL (50-199) 05/24/16 23:46 LDL Cholesterol Direct 49 mg/dL (50-130) L 05/24/16 23:46 HDL Cholesterol 64 mg/dL (40-59) H 05/24/16 23:46 Cholesterol/HDL Ratio 2.00 % 05/24/16 23:46 Urine Color Straw (Yellow) 05/24/16 21:00 Urine Turbidity Clear (Clear) 05/24/16 21:00 Urine pH 6.0 (5.0-7.0) 05/24/16 21:00 Ur Specific [place] 1.008 (1.003-1.030) 05/24/16 21:00 Urine Protein <15 mg/dl mg/dL (Negative) 05/24/16 21:00 Urine Glucose (UA) Neg mg/dL (Negative) 05/24/16 21:00 Urine Ketones Neg mg/dL (Negative) 05/24/16 21:00 Urine Blood Sm (Negative) 05/24/16 21:00 Urine Nitrite Neg (Negative) 05/24/16 21:00 Urine Bilirubin Neg (Negative) 05/24/16 21:00 Urine Urobilinogen < 2.0 mg/dL (<2.0) 05/24/16 21:00 Ur Leukocyte Esterase Neg (Negative) 05/24/16 21:00 Urine WBC (Auto) < 1.0 /HPF (0.0-6.0) 05/24/16 21:00 Urine RBC (Auto) 1.0 /HPF (0.0-6.0) 05/24/16 21:00
--- NOTE | 2016-05-27 13:25 | Progress Note ---
Assessment and Plan Current antibiotics: Unasyn 3 g IV q6h 05/25 --> Previous antibiotics: Zosyn 4.5 g IV X 1 05/24 Clindamycin 600 mg IV X 1 05/24 Vancomycin 1 g IV X 1 05/24 ASSESSMENT: Kevin Luciano is a 60-year-old homeless male who was admitted to [facility] on 05/24/16 with right ankle pain. He has had a chronic ("since I was a child") left medial malleolus ulcer that intermittently heals but for the most part has been opened. He states that for several weeks prior to admission it became larger and started draining a malodorous material and he came to the emergency department and was admitted to the hospitalist service Problem list: 1. Chronic venous stasis ulcer over the right medial malleolus -Appears fairly clean at present with no signs of active infection -? mild infection on admission 2. Chronic lower extremity lymphedema -Moderate 3. Homeless PLAN: 1. Will continue Unasyn for now but likely will be able to stop antibiotics soon 2. Local wound care 3. [facility]ci placement as per case management Subjective Date of service: 05/27/16 Principal diagnosis: Chronic venous stasis ulcer over the right medial malleolus Interval history: Patient awake and interactive. Patient sitting on bedside eating lunch and appears to be in no distress. Patient states that his right leg is improved with less edema. Patient complains that he is unable to sleep and that he would like something for sleep if possible. Patient also states he received one aspirin since his hospitalization hasn't been given any more since. Review of systems: Patient denies chest pain chest pressure. Patient denies shortness of breath cough or sputum production. Patient does complain of lack of sleep and is asking for something for sleep. Patient's RN is informed Objective - Exam Narrative Exam: GENERAL: Well-developed, well-nourished obese appearing who is alert and in no acute distress. He does not appear acutely ill. HEAD: Normocephalic. No lesions seen. EYES: Pupils are equal reactive to light and accommodation. There is no scleral icterus. Optic fundi are not examined. EARS: No evidence of external drainage. THROAT: Oropharynx is normal with no evidence of oral candidiasis or pharyngitis. NECK: Supple. No enlargement of the thyroid gland. No significant cervical lymphadenopathy. No jugular venous distention at 60. LUNGS: Clear with no adventitious sounds. HEART: Regular rate. S1 and S2 are normal. There are no murmurs, gallops, clicks or rubs heard. ABDOMEN: Soft and nontender, obese. Liver and spleen are not palpably enlarged or tender. No palpable masses. Bowel sounds are normoactive. EXTREMITIES: No peripheral lymphadenopathy. Moderate bilateral lower extremity edema (right > left) without cellulitic changes. Right foot and ankle with dressing noted. It is clean dry and intact. It is not removed at current time. Reports of the previous ulcer noted as "a large ulcer over the right medial malleolus with a clean-appearing base without necrotic debris nor purulence at present." SKIN: No rash. Ankle ulcer as above. NEUROLOGIC: No focal findings. - Constitutional Vitals: Vital Signs Temp Pulse Resp BP Pulse Ox 98.3 F 71 16 168/85 98 05/27/16 07:55 05/27/16 07:55 05/27/16 07:55 05/27/16 07:55 05/27/16 07:55 Temperature -Last 24 Hours Temperature 98.3 F Temperature 98.4 F Temperature 98.2 F - Labs CBC & Chem 7: 05/24/16 02:41 05/24/16 02:41
[2016-05-27] MEDS: RESTORIL PO PRN (23:03)
[2016-05-28] MEDS: UNASYN/NS 3 GM/100 ML 100 ML IV SCH ×2 (05:36→11:09)
[2016-05-28] MEDS ORDERED: AMBIEN PO PRN (09:58)
--- NOTE | 2016-05-28 09:58 | Progress Note ---
Assessment and Plan Assessment and plan: 1. Right lower extremity cellulitis. Resolving. Venous duplex negative for DVT Continue abx per ID recommendations. ID input appreciated, had a mild cellulitis that appears to be resolving unlikely to need salvage determiner abx 2. Nicotine dependence Patient has been counseled, offered nicotine patches when necessary 3. Venous stasis Ulcer/ Chronic lymphedema local wound care will need outpatient vascular F/u 4. Insomnia. Ambien 5 mg nightly. Disposition. Await case management to arrange senior living placement History Interval history: No new issues overnight. No reports of chest pain shortness of breath. Patient complains of insomnia. Hospitalist Physical - Physical exam Narrative exam: No peripheral lymphadenopathy. Moderate bilateral lower extremity edema (right > left) without cellulitic changes. Right foot and ankle with dressing noted. It is clean dry and intact. Patient with a large ulcer over the right medial malleolus with a clean-appearing base without necrotic debris nor purulence at present. - Constitutional Vitals: Temp Pulse Resp BP Pulse Ox 98.4 F 70 18 147/91 97 05/27/16 22:58 05/27/16 22:58 05/27/16 22:58 05/27/16 22:58 05/28/16 09:10 General appearance: Present: no acute distress - EENT Eyes: Present: PERRL, EOM intact ENT: hearing intact, clear oral mucosa, dentition normal - Neck Neck: Present: supple, normal ROM - Respiratory Respiratory effort: normal Respiratory: bilateral: CTA - Cardiovascular Rhythm: regular Heart Sounds: Present: S1 & S2. Absent: gallop, rub - Extremities Extremities: no ischemia, Full ROM Extremity abnormal: other (see ext exam above) - Abdominal General gastrointestinal: soft, non-tender, non-distended, normal bowel sounds - Integumentary Integumentary: Present: clear, warm, dry - Neurologic Neurologic: CNII-XII intact, moves all extremities Results - Labs CBC & Chem 7: 05/24/16 02:41 05/24/16 02:41 Labs: Laboratory Last Values WBC 5.2 K/mm3 (4.5-11.0) 05/24/16 02:41 RBC 4.38 M/mm3 (3.65-5.03) 05/24/16 02:41 Hgb 13.2 gm/dl (11.8-15.2) 05/24/16 02:41 Hct 39.4 % (35.5-45.6) 05/24/16 02:41 MCV 90 fl (84-94) 05/24/16 02:41 MCH 30 pg (28-32) 05/24/16 02:41 MCHC 34 % (32-34) 05/24/16 02:41 RDW 14.7 % (13.2-15.2) 05/24/16 02:41 Plt Count 213 K/mm3 (140-440) 05/24/16 02:41 Lymph % (Auto) 44.8 % (13.4-35.0) H 05/24/16 02:41 [place] % (Auto) 14.2 % (0.0-7.3) H 05/24/16 02:41 Eos % (Auto) 1.4 % (0.0-4.3) 05/24/16 02:41 Baso % (Auto) 0.3 % (0.0-1.8) 05/24/16 02:41 Lymph # 2.3 K/mm3 (1.2-5.4) 05/24/16 02:41 [place] # 0.7 K/mm3 (0.0-0.8) 05/24/16 02:41 Eos # 0.1 K/mm3 (0.0-0.4) 05/24/16 02:41 Baso # 0.0 K/mm3 (0.0-0.1) 05/24/16 02:41 Seg Neutrophils % 39.3 % (40.0-70.0) L 05/24/16 02:41 Seg Neutrophils # 2.0 K/mm3 (1.8-7.7) 05/24/16 02:41 ESR 40 mm/Hr (0-20) 05/24/16 20:37 PT 13.2 Sec. (12.2-14.9) 05/24/16 02:41 INR 1.01 (0.87-1.13) 05/24/16 02:41 VBG pH 7.398 (7.320-7.420) 05/24/16 02:41 Sodium 138 mmol/L (137-145) 05/24/16 02:41 Potassium 4.2 mmol/L (3.6-5.0) 05/24/16 02:41 Chloride 99.0 mmol/L (98-107) 05/24/16 02:41 Carbon Dioxide 26 mmol/L (22-30) 05/24/16 02:41 Anion Gap 17 mmol/L 05/24/16 02:41 BUN 14 mg/dL (9-20) 05/24/16 02:41 Creatinine 0.8 mg/dL (0.8-1.5) 05/24/16 02:41 Estimated GFR > 60 ml/min 05/24/16 02:41 BUN/Creatinine Ratio 17.50 % 05/24/16 02:41 Glucose 102 mg/dL (75-100) H 05/24/16 02:41 POC Glucose 85 (70-105) 05/28/16 06:39 Hemoglobin A1c 6.2 % (4-6) H 05/24/16 23:46 Lactic Acid 0.7 mmol/L (0.7-2.0) 05/24/16 05:12 Calcium 8.4 mg/dL (8.4-10.2) 05/24/16 02:41 Total Bilirubin 0.5 mg/dL (0.1-1.2) 05/24/16 02:41 AST 51 units/L (5-40) H 05/24/16 02:41 ALT 28 units/L (7-56) 05/24/16 02:41 Alkaline Phosphatase 61 units/L (35-129) 05/24/16 02:41 C-Reactive Protein 0.40 mg/dL (0.00-1.30) 05/24/16 20:37 NT-Pro-B Natriuret Pep 96.48 pg/mL (0-900) 05/24/16 20:37 Total Protein 7.7 g/dL (6.3-8.2) 05/24/16 02:41 Albumin 3.4 g/dL (3.9-5) L 05/24/16 02:41 Albumin/Globulin Ratio 0.8 % 05/24/16 02:41 Triglycerides 75 mg/dL (2-149) 05/24/16 23:46 Cholesterol 128 mg/dL (50-199) 05/24/16 23:46 LDL Cholesterol Direct 49 mg/dL (50-130) L 05/24/16 23:46 HDL Cholesterol 64 mg/dL (40-59) H 05/24/16 23:46 Cholesterol/HDL Ratio 2.00 % 05/24/16 23:46 Urine Color Straw (Yellow) 05/24/16 21:00 Urine Turbidity Clear (Clear) 05/24/16 21:00 Urine pH 6.0 (5.0-7.0) 05/24/16 21:00 Ur Specific [place] 1.008 (1.003-1.030) 05/24/16 21:00 Urine Protein <15 mg/dl mg/dL (Negative) 05/24/16 21:00 Urine Glucose (UA) Neg mg/dL (Negative) 05/24/16 21:00 Urine Ketones Neg mg/dL (Negative) 05/24/16 21:00 Urine Blood Sm (Negative) 05/24/16 21:00 Urine Nitrite Neg (Negative) 05/24/16 21:00 Urine Bilirubin Neg (Negative) 05/24/16 21:00 Urine Urobilinogen < 2.0 mg/dL (<2.0) 05/24/16 21:00 Ur Leukocyte Esterase Neg (Negative) 05/24/16 21:00 Urine WBC (Auto) < 1.0 /HPF (0.0-6.0) 05/24/16 21:00 Urine RBC (Auto) 1.0 /HPF (0.0-6.0) 05/24/16 21:00
--- NOTE | 2016-05-28 10:16 | Magnetic Resonance Report ---
MRI RIGHT FOOT WITHOUT AND WITH CONTRAST: 05/27/16 23:16:00 CLINICAL: A soft tissue ulcer of the lower leg and foot swelling. COMPARISON:Ankle x-rays 05/24/16. TECHNIQUE: Sagittal, coronal and axial T1, coronal and axial T2 fat sat, sagittal STIR and sagittal, coronal and axial postcontrast T1 fat sat sequences on a 1.5 [place]pita magnet. 15.0 cc of Multihance was injected intravenously for the contrast portion of the exam and consent was obtained prior to the administration of contrast. FINDINGS: Moderate subcutaneous soft tissue swelling of the midfoot. No deep soft tissue edema and no abscess. No detectable edema at the soft tissue ulcer at the medial aspect of the ankle. There is moderate enhancement of the anterior subcutaneous soft tissues. No erosive changes in the bones. The marrow signal is normal except for arthritic changes at the tibiotalar joint. There is a cluster of superficial subcutaneous small ganglion cysts at the lateral aspect of the midfoot with the largest measuring 2 cm. The flexor tendons and peroneal tendons are intact. The Achilles tendon is intact. Ankle ligaments are intact. IMPRESSION: 1. Mild cellulitis of the anterior subcutaneous soft tissues. 2. No abscess. 3. No signs of osteomyelitis. 4. No signs of cellulitis at the soft tissue ulcer on the medial distal leg.
[2016-05-28] MEDS: FOLVITE PO SCH (11:09)
[2016-05-28] MEDS: PERCOCET 5/325 PO PRN ×3 (11:12→23:40)
--- NOTE | 2016-05-28 14:09 | Progress Note ---
Assessment and Plan Current antibiotics: Augmentin 875 mg by mouth twice a day (05/28/16 - > Previous antibiotics: Unasyn 3 g IV every 6 hours (05/25 - 05/28/16) Zosyn 4.5 g IV X 1 05/24 Clindamycin 600 mg IV X 1 05/24 Vancomycin 1 g IV X 1 05/24 ASSESSMENT: Kevin Luciano is a 60-year-old homeless male who was admitted to [facility] on 05/24/16 with right ankle pain. He has had a chronic ("since I was a child") left medial malleolus ulcer that intermittently heals but for the most part has been opened. He states that for several weeks prior to admission it became larger and started draining a malodorous material and he came to the emergency department and was admitted to the hospitalist service Problem list: 1. Chronic venous stasis ulcer over the right medial malleolus -Appears fairly clean at present with no signs of active infection -? mild infection on admission 2. Chronic lower extremity lymphedema -Moderate 3. Homeless PLAN: 1. Suggest at this point changed to oral Augmentin. IV Unasyn can be stopped. 2. Local wound care 3. Prison placement as per case management Subjective Date of service: 05/28/16 Principal diagnosis: Chronic venous stasis ulcer over the right medial malleolus Interval history: Complains of right leg pain. Objective - Exam Narrative Exam: GENERAL: Well-developed, well-nourished obese appearing who is alert and in no acute distress. He does not appear acutely ill. HEAD: Normocephalic. No lesions seen. EYES: Pupils are equal reactive to light and accommodation. There is no scleral icterus. Optic fundi are not examined. EARS: No evidence of external drainage. THROAT: Oropharynx is normal with no evidence of oral candidiasis or pharyngitis. NECK: Supple. No enlargement of the thyroid gland. No significant cervical lymphadenopathy. No jugular venous distention at 60. LUNGS: Clear with no adventitious sounds. HEART: Regular rate. S1 and S2 are normal. There are no murmurs, gallops, clicks or rubs heard. ABDOMEN: Soft and nontender, obese. Liver and spleen are not palpably enlarged or tender. No palpable masses. Bowel sounds are normoactive. EXTREMITIES: No peripheral lymphadenopathy. Moderate bilateral lower extremity edema (right > left) without cellulitic changes. Right foot and ankle with dressing noted. It is clean dry and intact. It is not removed at current time. Reports of the previous ulcer noted as "a large ulcer over the right medial malleolus with a clean-appearing base without necrotic debris nor purulence at present." SKIN: No rash. Ankle ulcer as above. NEUROLOGIC: No focal findings. - Constitutional Vitals: Vital Signs Temp Pulse Resp BP Pulse Ox 98.4 F 70 18 147/91 97 05/27/16 22:58 05/27/16 22:58 05/27/16 22:58 05/27/16 22:58 05/28/16 09:10 Temperature -Last 24 Hours Temperature 98.4 F Temperature 98.7 F - Labs CBC & Chem 7: 05/24/16 02:41 05/24/16 02:41
[2016-05-28] MEDS: AUGMENTIN 875 MG PO SCH (23:37)
[2016-05-28] MEDS: RESTORIL PO PRN (23:37)
[2016-05-29] MEDS: AUGMENTIN 875 MG PO SCH (09:23)
[2016-05-29] MEDS: FOLVITE PO SCH (09:23)
--- NOTE | 2016-05-29 12:05 | Progress Note ---
Assessment and Plan Current antibiotics: Augmentin 875 mg by mouth twice a day (05/28/16 - > Previous antibiotics: Unasyn 3 g IV every 6 hours (05/25 - 05/28/16) Zosyn 4.5 g IV X 1 05/24 Clindamycin 600 mg IV X 1 05/24 Vancomycin 1 g IV X 1 05/24 ASSESSMENT: Kevin Luciano is a 60-year-old homeless male who was admitted to [facility] on 05/24/16 with right ankle pain. He has had a chronic ("since I was a child") left medial malleolus ulcer that intermittently heals but for the most part has been opened. He states that for several weeks prior to admission it became larger and started draining a malodorous material and he came to the emergency department and was admitted to the hospitalist service Problem list: 1. Chronic venous stasis ulcer over the right medial malleolus measuring 5 x 3.5cm with fibrinous tissue -possible superinfection, patient is at increased risk of worsening infection if this wound does not receive continued aggressive wound care -pseudomonas grew in wound, in view of this will give him oral cipro and stop the augment 2. Chronic lower extremity lymphedema -Moderate 3. Homeless PLAN: 1. discontinue augmentin 2. start levaquin 500mg po Q24H 3. patient will need outpatient wound care Subjective Date of service: 05/29/16 Principal diagnosis: Chronic venous stasis ulcer over the right medial malleolus Interval history: Patient seen in bed comfortable, he has no new complaints Objective - Constitutional Vitals: Selected Entries 05/29/16 07:10 Temperature 97.7 F Pulse Rate [ 63 Left Radial] Respiratory 18 Rate O2 Sat by Pulse 99 Oximetry Blood Pressure 142/89 [Left Arm] Blood Pressure 106 Mean [Left Arm] General appearance: Present: no acute distress, well-nourished - EENT Eyes: PERRL, EOM intact, no scleral icterus, no conjunctival injection ENT: hearing intact, clear oral mucosa, poor dentition Ears: bilateral: normal - Neck Neck: supple, normal ROM, no enlarged thyroid, no masses or JVD - Respiratory Respiratory effort: normal Respiratory: bilateral: CTA - Breasts Breasts: deferred - Cardiovascular Rhythm: regular Heart Sounds: Present: S1 & S2 Extremities: abnormal (right medial malleolus ulcer measuring 5 x 3.5cm with some areas of fibrinous tissue) - Gastrointestinal General gastrointestinal: Present: soft, non-tender, normal bowel sounds Rectal Exam: deferred - Genitourinary Male genitourinary: deferred - Integumentary Integumentary: clear, warm, dry, no jaundice, no rash - Neurologic Neurologic: moves all extremities - Labs CBC & Chem 7: 05/24/16 02:41 05/24/16 02:41 Labs: Microbiology 05/24/16 20:00 Ankle - Right Wound Culture - Final Pseudomonas Aeruginosa 05/24/16 02:41 Peripheral/Venous Blood Culture - Final NO GROWTH AFTER 5 DAYS 05/24/16 02:41 Peripheral/Venous Blood Culture - Final NO GROWTH AFTER 5 DAYS Laboratory Tests 05/24/16 05/24/16 02:41 02:41 WBC 5.2 Plt Count 213 Creatinine 0.8
--- NOTE | 2016-05-29 12:16 | Progress Note ---
Assessment and Plan Assessment and plan: 1. Right lower extremity cellulitis. Resolving. Venous duplex negative for DVT Continue abx per ID recommendations. ID input appreciated, had a mild cellulitis that appears to be resolving unlikely to need predatory animal exterminator abx 2. Nicotine dependence Patient has been counseled, offered nicotine patches when necessary 3. Venous stasis Ulcer/ Chronic lymphedema local wound care will need outpatient vascular F/u 4. Insomnia. Ambien 5 mg nightly. Disposition. Await case management to arrange skilled nursing placement History Interval history: No new issues overnight. No reports of chest pain shortness of breath. Patient complaints of insomnia resolved. Hospitalist Physical - Physical exam Narrative exam: No peripheral lymphadenopathy. Moderate bilateral lower extremity edema (right > left) without cellulitic changes. Right foot and ankle with dressing noted. It is clean dry and intact. Patient with a large ulcer over the right medial malleolus with a clean-appearing base without necrotic debris nor purulence at present. - Constitutional Vitals: Temp Pulse Resp BP Pulse Ox 97.7 F 63 18 142/89 99 05/29/16 07:10 05/29/16 07:10 05/29/16 07:10 05/29/16 07:10 05/29/16 07:10 General appearance: Present: no acute distress, well-nourished - EENT Eyes: Present: PERRL, EOM intact ENT: hearing intact, clear oral mucosa, dentition normal - Neck Neck: Present: supple, normal ROM - Respiratory Respiratory effort: normal Respiratory: bilateral: CTA - Cardiovascular Rhythm: regular Heart Sounds: Present: S1 & S2. Absent: gallop, rub - Extremities Extremities: no ischemia, No edema, Full ROM - Abdominal General gastrointestinal: soft, non-tender, non-distended, normal bowel sounds - Integumentary Integumentary: Present: clear, warm, dry - Neurologic Neurologic: CNII-XII intact, moves all extremities Results - Labs CBC & Chem 7: 05/24/16 02:41 05/24/16 02:41 Labs: Laboratory Last Values WBC 5.2 K/mm3 (4.5-11.0) 05/24/16 02:41 RBC 4.38 M/mm3 (3.65-5.03) 05/24/16 02:41 Hgb 13.2 gm/dl (11.8-15.2) 05/24/16 02:41 Hct 39.4 % (35.5-45.6) 05/24/16 02:41 MCV 90 fl (84-94) 05/24/16 02:41 MCH 30 pg (28-32) 05/24/16 02:41 MCHC 34 % (32-34) 05/24/16 02:41 RDW 14.7 % (13.2-15.2) 05/24/16 02:41 Plt Count 213 K/mm3 (140-440) 05/24/16 02:41 Lymph % (Auto) 44.8 % (13.4-35.0) H 05/24/16 02:41 [place] % (Auto) 14.2 % (0.0-7.3) H 05/24/16 02:41 Eos % (Auto) 1.4 % (0.0-4.3) 05/24/16 02:41 Baso % (Auto) 0.3 % (0.0-1.8) 05/24/16 02:41 Lymph # 2.3 K/mm3 (1.2-5.4) 05/24/16 02:41 [place] # 0.7 K/mm3 (0.0-0.8) 05/24/16 02:41 Eos # 0.1 K/mm3 (0.0-0.4) 05/24/16 02:41 Baso # 0.0 K/mm3 (0.0-0.1) 05/24/16 02:41 Seg Neutrophils % 39.3 % (40.0-70.0) L 05/24/16 02:41 Seg Neutrophils # 2.0 K/mm3 (1.8-7.7) 05/24/16 02:41 ESR 40 mm/Hr (0-20) 05/24/16 20:37 PT 13.2 Sec. (12.2-14.9) 05/24/16 02:41 INR 1.01 (0.87-1.13) 05/24/16 02:41 VBG pH 7.398 (7.320-7.420) 05/24/16 02:41 Sodium 138 mmol/L (137-145) 05/24/16 02:41 Potassium 4.2 mmol/L (3.6-5.0) 05/24/16 02:41 Chloride 99.0 mmol/L (98-107) 05/24/16 02:41 Carbon Dioxide 26 mmol/L (22-30) 05/24/16 02:41 Anion Gap 17 mmol/L 05/24/16 02:41 BUN 14 mg/dL (9-20) 05/24/16 02:41 Creatinine 0.8 mg/dL (0.8-1.5) 05/24/16 02:41 Estimated GFR > 60 ml/min 05/24/16 02:41 BUN/Creatinine Ratio 17.50 % 05/24/16 02:41 Glucose 102 mg/dL (75-100) H 05/24/16 02:41 POC Glucose 90 (70-105) 05/28/16 11:57 Hemoglobin A1c 6.2 % (4-6) H 05/24/16 23:46 Lactic Acid 0.7 mmol/L (0.7-2.0) 05/24/16 05:12 Calcium 8.4 mg/dL (8.4-10.2) 05/24/16 02:41 Total Bilirubin 0.5 mg/dL (0.1-1.2) 05/24/16 02:41 AST 51 units/L (5-40) H 05/24/16 02:41 ALT 28 units/L (7-56) 05/24/16 02:41 Alkaline Phosphatase 61 units/L (35-129) 05/24/16 02:41 C-Reactive Protein 0.40 mg/dL (0.00-1.30) 05/24/16 20:37 NT-Pro-B Natriuret Pep 96.48 pg/mL (0-900) 05/24/16 20:37 Total Protein 7.7 g/dL (6.3-8.2) 05/24/16 02:41 Albumin 3.4 g/dL (3.9-5) L 05/24/16 02:41 Albumin/Globulin Ratio 0.8 % 05/24/16 02:41 Triglycerides 75 mg/dL (2-149) 05/24/16 23:46 Cholesterol 128 mg/dL (50-199) 05/24/16 23:46 LDL Cholesterol Direct 49 mg/dL (50-130) L 05/24/16 23:46 HDL Cholesterol 64 mg/dL (40-59) H 05/24/16 23:46 Cholesterol/HDL Ratio 2.00 % 05/24/16 23:46 Urine Color Straw (Yellow) 05/24/16 21:00 Urine Turbidity Clear (Clear) 05/24/16 21:00 Urine pH 6.0 (5.0-7.0) 05/24/16 21:00 Ur Specific [place] 1.008 (1.003-1.030) 05/24/16 21:00 Urine Protein <15 mg/dl mg/dL (Negative) 05/24/16 21:00 Urine Glucose (UA) Neg mg/dL (Negative) 05/24/16 21:00 Urine Ketones Neg mg/dL (Negative) 05/24/16 21:00 Urine Blood Sm (Negative) 05/24/16 21:00 Urine Nitrite Neg (Negative) 05/24/16 21:00 Urine Bilirubin Neg (Negative) 05/24/16 21:00 Urine Urobilinogen < 2.0 mg/dL (<2.0) 05/24/16 21:00 Ur Leukocyte Esterase Neg (Negative) 05/24/16 21:00 Urine WBC (Auto) < 1.0 /HPF (0.0-6.0) 05/24/16 21:00 Urine RBC (Auto) 1.0 /HPF (0.0-6.0) 05/24/16 21:00
[2016-05-29] MEDS: LEVAQUIN PO SCH (14:44)
[2016-05-29] MEDS: PERCOCET 5/325 PO PRN (17:01)
[2016-05-29] MEDS: RESTORIL PO PRN (22:40)
[2016-05-29] MEDS: COZAAR PO SCH (22:40)
[2016-05-30] MEDS: COZAAR PO SCH (09:33)
[2016-05-30] MEDS: LEVAQUIN PO SCH (09:34)
[2016-05-30] MEDS: FOLVITE PO SCH (09:34)
[2016-05-30] MEDS ORDERED: HABITROL TD SCH (10:00)
[2016-05-30] MEDS: PERCOCET 5/325 PO PRN (10:54)
--- NOTE | 2016-05-30 11:21 | Progress Note ---
Assessment and Plan Current antibiotics: Levaquin 500 mg po q24h 05/29 --> Previous antibiotics: Augmentin 875 mg by mouth twice a day (05/28/16-05/29) Unasyn 3 g IV every 6 hours (05/25-05/28/16) Zosyn 4.5 g IV X 1 05/24 Clindamycin 600 mg IV X 1 05/24 Vancomycin 1 g IV X 1 05/24 ASSESSMENT: Kevin Luciano is a 60-year-old homeless male who was admitted to [facility] on 05/24/16 with right ankle pain. He has had a chronic ("since I was a child") left medial malleolus ulcer that intermittently heals but for the most part has been opened. He states that for several weeks prior to admission it became larger and started draining a malodorous material and he came to the emergency department and was admitted to the hospitalist service Problem list: 1. Chronic venous stasis ulcer over the right medial malleolus -Appears fairly clean at present with no signs of active infection -? mild infection on admission 2. Chronic lower extremity lymphedema -Moderate 3. Homeless PLAN: 1. Will continue po Levaquin. Can be changed to Cipro on discharge as he can obtain it for no charge or $4. 2. Continue local wound care 3. [facility] placement as per case management Temo Wasserman MD [facility] Office: [phone] Subjective Date of service: 05/30/16 Principal diagnosis: Chronic venous stasis ulcer over the right medial malleolus Interval history: No complaints this morning. Tolerating Levaquin well to date. Objective - Exam Narrative Exam: GENERAL: Well-developed, well-nourished appearing who is alert and in no acute distress. He does not appear acutely ill. HEAD: Normocephalic. No lesions seen. EYES: Pupils are equal reactive to light and accommodation. There is no scleral icterus. Optic fundi are not examined. EARS: Tympanic membranes are normal. THROAT: Oropharynx is normal with no evidence of oral candidiasis or pharyngitis. NECK: Supple. No enlargement of the thyroid gland. No significant cervical lymphadenopathy. No jugular venous distention at 30. LUNGS: Clear with no adventitious sounds. HEART: Regular rate. S1 and S2 are normal. There are no murmurs, gallops, clicks or rubs heard. ABDOMEN: Soft and nontender. Liver and spleen are not palpably enlarged or tender. No palpable masses. Bowel sounds are normoactive. EXTREMITIES: No peripheral lymphadenopathy. Moderate bilateral lower extremity edema (right > left) without cellulitic changes. There is a large ulcer over the right medial malleolus with a clean-appearing base without necrotic debris nor purulence at present. No surrounding cellulitic changes. No evidence of ascending infection. SKIN: No rash. Ankle ulcer as above. : Not examined NEUROLOGIC: No focal findings. - Constitutional Vitals: Vital Signs Temp Pulse Resp BP Pulse Ox 98.7 F 65 18 126/83 98 05/30/16 07:57 05/30/16 07:57 05/30/16 07:57 05/30/16 07:57 05/30/16 07:57 Temperature -Last 24 Hours Temperature 98.7 F Temperature 98.3 F Temperature 98.8 F Temperature 98.5 F - Labs CBC & Chem 7: 05/24/16 02:41 05/24/16 02:41 Labs: Microbiology 05/24/16 20:00 Ankle - Right Wound Culture - Final Pseudomonas Aeruginosa (quinolone sensitive) 05/24/16 02:41 Peripheral/Venous Blood Culture - Final NO GROWTH AFTER 5 DAYS 05/24/16 02:41 Peripheral/Venous Blood Culture - Final NO GROWTH AFTER 5 DAYS 05/24/16 21:00 Urine,Clean Catch Urine Culture - Final
--- NOTE | 2016-05-30 13:51 | Progress Note ---
History Interval history: f/u chronic venous stasis ulcer; cellulitis Patient seen at the bedside; no complaints; awaiting placement Hospitalist Physical - Constitutional Vitals: Temp Pulse Resp BP Pulse Ox 98.7 F 65 18 126/83 98 05/30/16 07:57 05/30/16 07:57 05/30/16 07:57 05/30/16 07:57 05/30/16 07:57 General appearance: Present: no acute distress, well-nourished - EENT Eyes: Present: PERRL, EOM intact. Absent: scleral icterus, conjunctival injection ENT: hearing intact, clear oral mucosa, no oropharyngeal erythema, no poor dentition - Neck Neck: Present: supple, normal ROM. Absent: enlarged thyroid, masses or JVD - Respiratory Respiratory effort: normal Respiratory: negative: diminished, rales, rhonchi, wheezing - Cardiovascular Rhythm: regular Heart Sounds: Present: S1 & S2. Absent: gallop - Extremities Extremities: abnormal (varicose veins; chronic ) Results - Labs CBC & Chem 7: 05/24/16 02:41 05/24/16 02:41 Labs: Laboratory Last Values WBC 5.2 K/mm3 (4.5-11.0) 05/24/16 02:41 RBC 4.38 M/mm3 (3.65-5.03) 05/24/16 02:41 Hgb 13.2 gm/dl (11.8-15.2) 05/24/16 02:41 Hct 39.4 % (35.5-45.6) 05/24/16 02:41 MCV 90 fl (84-94) 05/24/16 02:41 MCH 30 pg (28-32) 05/24/16 02:41 MCHC 34 % (32-34) 05/24/16 02:41 RDW 14.7 % (13.2-15.2) 05/24/16 02:41 Plt Count 213 K/mm3 (140-440) 05/24/16 02:41 Lymph % (Auto) 44.8 % (13.4-35.0) H 05/24/16 02:41 [place] % (Auto) 14.2 % (0.0-7.3) H 05/24/16 02:41 Eos % (Auto) 1.4 % (0.0-4.3) 05/24/16 02:41 Baso % (Auto) 0.3 % (0.0-1.8) 05/24/16 02:41 Lymph # 2.3 K/mm3 (1.2-5.4) 05/24/16 02:41 [place] # 0.7 K/mm3 (0.0-0.8) 05/24/16 02:41 Eos # 0.1 K/mm3 (0.0-0.4) 05/24/16 02:41 Baso # 0.0 K/mm3 (0.0-0.1) 05/24/16 02:41 Seg Neutrophils % 39.3 % (40.0-70.0) L 05/24/16 02:41 Seg Neutrophils # 2.0 K/mm3 (1.8-7.7) 05/24/16 02:41 ESR 40 mm/Hr (0-20) 05/24/16 20:37 PT 13.2 Sec. (12.2-14.9) 05/24/16 02:41 INR 1.01 (0.87-1.13) 05/24/16 02:41 VBG pH 7.398 (7.320-7.420) 05/24/16 02:41 Sodium 138 mmol/L (137-145) 05/24/16 02:41 Potassium 4.2 mmol/L (3.6-5.0) 05/24/16 02:41 Chloride 99.0 mmol/L (98-107) 05/24/16 02:41 Carbon Dioxide 26 mmol/L (22-30) 05/24/16 02:41 Anion Gap 17 mmol/L 05/24/16 02:41 BUN 14 mg/dL (9-20) 05/24/16 02:41 Creatinine 0.8 mg/dL (0.8-1.5) 05/24/16 02:41 Estimated GFR > 60 ml/min 05/24/16 02:41 BUN/Creatinine Ratio 17.50 % 05/24/16 02:41 Glucose 102 mg/dL (75-100) H 05/24/16 02:41 POC Glucose 90 (70-105) 05/28/16 11:57 Hemoglobin A1c 6.2 % (4-6) H 05/24/16 23:46 Lactic Acid 0.7 mmol/L (0.7-2.0) 05/24/16 05:12 Calcium 8.4 mg/dL (8.4-10.2) 05/24/16 02:41 Total Bilirubin 0.5 mg/dL (0.1-1.2) 05/24/16 02:41 AST 51 units/L (5-40) H 05/24/16 02:41 ALT 28 units/L (7-56) 05/24/16 02:41 Alkaline Phosphatase 61 units/L (35-129) 05/24/16 02:41 C-Reactive Protein 0.40 mg/dL (0.00-1.30) 05/24/16 20:37 NT-Pro-B Natriuret Pep 96.48 pg/mL (0-900) 05/24/16 20:37 Total Protein 7.7 g/dL (6.3-8.2) 05/24/16 02:41 Albumin 3.4 g/dL (3.9-5) L 05/24/16 02:41 Albumin/Globulin Ratio 0.8 % 05/24/16 02:41 Triglycerides 75 mg/dL (2-149) 05/24/16 23:46 Cholesterol 128 mg/dL (50-199) 05/24/16 23:46 LDL Cholesterol Direct 49 mg/dL (50-130) L 05/24/16 23:46 HDL Cholesterol 64 mg/dL (40-59) H 05/24/16 23:46 Cholesterol/HDL Ratio 2.00 % 05/24/16 23:46 Urine Color Straw (Yellow) 05/24/16 21:00 Urine Turbidity Clear (Clear) 05/24/16 21:00 Urine pH 6.0 (5.0-7.0) 05/24/16 21:00 Ur Specific [place] 1.008 (1.003-1.030) 05/24/16 21:00 Urine Protein <15 mg/dl mg/dL (Negative) 05/24/16 21:00 Urine Glucose (UA) Neg mg/dL (Negative) 05/24/16 21:00 Urine Ketones Neg mg/dL (Negative) 05/24/16 21:00 Urine Blood Sm (Negative) 05/24/16 21:00 Urine Nitrite Neg (Negative) 05/24/16 21:00 Urine Bilirubin Neg (Negative) 05/24/16 21:00 Urine Urobilinogen < 2.0 mg/dL (<2.0) 05/24/16 21:00 Ur Leukocyte Esterase Neg (Negative) 05/24/16 21:00 Urine WBC (Auto) < 1.0 /HPF (0.0-6.0) 05/24/16 21:00 Urine RBC (Auto) 1.0 /HPF (0.0-6.0) 05/24/16 21:00
--- NOTE | 2016-05-30 13:57 | Discharge Summary ---
Providers - Providers Date of Admission: 05/24/16 23:08 Date of discharge: 05/30/16 Attending physician: MECCA NOBLE 05/29/16 23:06 Consult to Case Management [CONS] Routine Services Needed at Discharge: Blood Splatter Analyst Notified:: no 05/24/16 23:10 Consult to Wound/ET Nurse [CONS] Routine Reason For Exam: wound eval 05/25/16 13:58 Consult to Physician [CONS] Routine Consulting Provider: GUSTAVO SCHERER Reason For Exam: left foot infection Place consult to:: id Notified:: yes Phone number called:: on floor Was contact made?: Yes If yes, spoke with:: derek Time called:: 12:12 05/25/16 13:59 Physical Therapy Evaluation and Treat [CONS] Routine Comment: Reason For Exam: debility Primary care physician: KINDERGARTEN PARAPROFESSIONAL Hospitalization Reason for admission: chronic venous stasis ulcer Condition: Stable Pertinent studies: stAble Hospital course: Mr. Luciano is a 60-year-old gentleman who presented to the emergency room complaining of infected right leg ulcer; is evaluated and admitted and started on IV antibiotics for cellulitis of the right leg secondary to chronic right venous stasis leg ulcer. He was seen by infectious disease. He was subsequently switched to oral antibiotics. The cellulitis improved prior to discharge. He was cleared for discharge by infectious disease and oral Cipro was recommended. Arrangements were made for him to go to a residential. He also had wound care while he was here. Disposition: DISCHARGED TO HOME OR SELFCARE Time spent for discharge: 31 minutes spent on preparing discharge - Discharge Diagnoses (1) Cellulitis Status: Acute Qualifiers: Site of cellulitis: extremity Site of cellulitis of extremity: lower extremity Laterality: right Qualified Code(s): L03.115 - Cellulitis of right lower limb (2) Metabolic syndrome Status: Chronic (3) Nicotine dependence Status: Chronic (4) Venous stasis ulcer of ankle Status: Chronic Core Measure Documentation - Palliative Care Palliative Care/ Comfort Measures: Not Applicable - Core Measures Any of the following diagnoses?: none Exam - Constitutional Vitals: Temp Pulse Resp BP Pulse Ox 98.7 F 65 18 126/83 98 05/30/16 07:57 05/30/16 07:57 05/30/16 07:57 05/30/16 07:57 05/30/16 07:57 General appearance: Present: no acute distress, well-nourished - EENT Eyes: Present: PERRL, EOM intact. Absent: scleral icterus, conjunctival injection ENT: hearing intact, clear oral mucosa, no oropharyngeal erythema, no poor dentition - Neck Neck: Present: supple, normal ROM. Absent: enlarged thyroid, masses or JVD - Respiratory Respiratory effort: normal Respiratory: negative: diminished, rales, rhonchi, wheezing - Cardiovascular Rhythm: regular Heart Sounds: Present: S1 & S2. Absent: gallop - Extremities Extremities: no ischemia, abnormal (varicose veins RT LE; chronic clean base ulcer over malleolus) Peripheral Pulses: within normal limits - Abdominal General gastrointestinal: Present: soft, non-tender, non-distended Male genitourinary: Present: deferred - Rectal Rectal Exam: deferred - Integumentary Integumentary: Present: warm - Musculoskeletal Musculoskeletal: strength equal bilaterally - Psychiatric Psychiatric: appropriate mood/affect, intact judgment & insight - Neurologic Neurologic: CNII-XII intact, moves all extremities Plan Activity: advance as tolerated Diet: low salt Wound: keep clean and dry, change dressing, per wound nurse instructions Follow up with: PRIMARY CARE, [Primary Care Provider] - 3-5 Days Prescriptions: Ciprofloxacin HCl [Ciprofloxacin TAB] 500 mg PO Q12H #10 tab Folic Acid [Folvite] 1 mg PO QDAY #30 tablet Losartan [Cozaar] 100 mg PO QDAY #30 tablet
[2016-05-30 16:05] VITALS: BP 139/80
--- NOTE | 2016-06-01 07:56 | Vascular Lab Report ---
Right Lower Extremity Venous Duplex Study: Reason for Exam: Swelling. Comments on the Right: All veins visualized are freely compressible without evidence of internal echogenicity. Flow is spontaneous and phasic throughout. No evidence of acute or chronic thrombus is seen in any of the vessels visualized. Comments on the Left: A limited duplex study was done of the proximal veins of the left lower extremity. All veins visualized are freely compressible without evidence of internal echogenicity. Flow is spontaneous and phasic throughout. No evidence of acute or chronic thrombus is seen in any of the vessels visualized. Impression: No evidence of acute or chronic deep venous thrombosis in the right lower extremity.
== END 2016-05-30 17:10 | disposition home or self-care (01) | DRG 300 ==
LOC: ED 21:36 → 3A 05-24 23:08
PROVIDERS: ADMIT Internal Medicine; ATTEND Hospitalist
DX: I83.213 Varicose veins of right lower extremity with both ulcer of ankle and inflammation (principal); L03.115 Cellulitis of right lower limb; L97.319 Non-pressure chronic ulcer of right ankle with unspecified severity; E88.81 Metabolic syndrome and other insulin resistance; E11.9 Type 2 diabetes mellitus without complications; I10 Essential (primary) hypertension; F32.9 Major depressive disorder, single episode, unspecified; F17.200 Nicotine dependence, unspecified, uncomplicated; Z96.642 Presence of left artificial hip joint; J44.9 Chronic obstructive pulmonary disease, unspecified; I89.0 Lymphedema, not elsewhere classified; G47.00 Insomnia, unspecified; Z59.0 Homelessness; Z98.890 Other specified postprocedural states; Z79.899 Other long term (current) drug therapy; Z82.49 Family history of ischemic heart disease and other diseases of the circulatory system; Z83.3 Family history of diabetes mellitus; Z88.8 Allergy status to other drugs, medicaments and biological substances; Z91.048 Other nonmedicinal substance allergy status; Z71.6 Tobacco abuse counseling
CPT/HCPCS: 36415; 71010; 80053; 80061; 81001; 82140; 82805; 82962; 83036; 83880; 85025; 85610; 85652; 86140; 87040; 87076; 87086; 87116; 87186; 96374; 96375; 99406; A9577; J0295; J0696; J1940; J2060; J2270; J2405; J2543; J3370; J7030

== ENCOUNTER 2018-02-12 20:30 | Emergency (ER) | payer MEDICAID ==
--- NOTE | 2018-02-12 22:22 | Cat Scan Report ---
FINAL REPORT EXAM: CT HEAD/BRAIN WO CON HISTORY: Head trauma, JAMISON, blurred vision TECHNIQUE: 2.5 millimeter axial images from the skullbase to the vertex. Comparison: None FINDINGS: There is no evidence of an acute intracranial process, intracranial hemorrhage or mass effect. The ventricles are normal size. The visualized portions of the orbits, paranasal and mastoid sinuses are notable for mild deformity of the medial wall of the left orbit without evidence of acute change in the adjacent ethmoid sinus. This may represent sequela of previous medial orbital wall fracture or may be congenital in nature. There is no evidence of acute fracture. IMPRESSION: 1. No evidence of an acute intracranial process, intracranial hemorrhage or mass effect. If there is a clinical suspicion of an acute intracranial process and if there is no clinical contraindication, MRI brain may be helpful. 2. Sequela of previous fracture left medial orbital wall versus congenital change.
[2018-02-13] MEDS ORDERED: BOOSTRIX IM ONE (02:38)
[2018-02-13] MEDS ORDERED: TYLENOL PO ONE (02:38)
[2018-02-13] MEDS ORDERED: MOTRIN PO ONE (02:38)
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
[2018-02-13 04:03] VITALS: BP 131/89
== END 2018-02-13 04:03 | disposition home or self-care (01) ==
LOC: ED 20:30
DX: I87.8 Other specified disorders of veins (principal); I10 Essential (primary) hypertension; E11.9 Type 2 diabetes mellitus without complications; F32.9 Major depressive disorder, single episode, unspecified; J44.9 Chronic obstructive pulmonary disease, unspecified; F17.200 Nicotine dependence, unspecified, uncomplicated; F12.10 Cannabis abuse, uncomplicated; Z86.718 Personal history of other venous thrombosis and embolism; Z96.642 Presence of left artificial hip joint; Z79.899 Other long term (current) drug therapy; Z91.09 Other allergy status, other than to drugs and biological substances; Y04.2XXA Assault by strike against or bumped into by another person, initial encounter; Y93.89 Activity, other specified; Y99.8 Other external cause status; Y92.89 Other specified places as the place of occurrence of the external cause
CPT/HCPCS: 70450; 90715